=== PATIENT | female | born 1945 | race Caucasian/White ===

== ENCOUNTER → 2016-02-27 | Outpatient (REF) | payer MEDICARE | LOC: M LAB REF 15:07 | PROVIDERS: ATTEND Nurse Practitioner Adult Health | DX: J44.1 Chronic obstructive pulmonary disease with (acute) exacerbation (principal) ==

== ENCOUNTER → 2017-03-11 | Outpatient (REF) | payer MEDICARE, MEDICAID | LOC: M LAB REF 16:38 | DX: N76.0 Acute vaginitis (principal) | CPT/HCPCS: 87070 ==

== ENCOUNTER → 2017-08-11 | Outpatient (CLI) | payer MEDICARE, MEDICAID | LOC: M WUC 15:58 | DX: S20.221A Contusion of right back wall of thorax, initial encounter (principal); X58.XXXA Exposure to other specified factors, initial encounter; Y92.89 Other specified places as the place of occurrence of the external cause; Y93.9 Activity, unspecified; Y99.9 Unspecified external cause status | CPT/HCPCS: 71101 ==

== ENCOUNTER → 2017-08-14 | Outpatient (CLI) | payer MEDICARE, MEDICAID ==
[2017-08-14 17:50] LABS: BLOOD UREA NITROGEN 15 MG/DL (7-18)
[2017-08-14 17:50] LABS: CREATININE FOR GFR 0.58 MG/DL (0.55-1.30); GLOMERULAR FILTRATION RATE > 60.0 (>39)
== END ==
LOC: M WUC 09:24
DX: S20.221A Contusion of right back wall of thorax, initial encounter (principal); Y92.89 Other specified places as the place of occurrence of the external cause; Y93.9 Activity, unspecified; Y99.9 Unspecified external cause status
CPT/HCPCS: 82565

== ENCOUNTER → 2017-08-19 | Outpatient (CLI) | payer MEDICARE, MEDICAID ==
[~2017-08-19] MED LIST: ISOVUE-370 76% 100ML VIAL (Q9967) As Ordered
== END ==
LOC: M RAD 13:49
DX: S20.221A Contusion of right back wall of thorax, initial encounter (principal); R91.8 Other nonspecific abnormal finding of lung field; J44.9 Chronic obstructive pulmonary disease, unspecified; I70.0 Atherosclerosis of aorta; I25.10 Atherosclerotic heart disease of native coronary artery without angina pectoris; X58.XXXA Exposure to other specified factors, initial encounter; Y92.9 Unspecified place or not applicable
CPT/HCPCS: Q9967

== ENCOUNTER → 2017-08-25 | Outpatient (REF) | payer MEDICARE ==
[2017-08-25 13:26] LABS: INR 0.87; PROTHROMBIN TIME 11.9 SECONDS (12.1-14.4)
== END ==
LOC: M LAB REF 13:01
DX: R91.8 Other nonspecific abnormal finding of lung field (principal)
CPT/HCPCS: 85610

== ENCOUNTER 2017-09-02 00:10 | Inpatient (IN) | payer MEDICARE ==
[2017-09-02] MEDS ORDERED: IPRATROPIUM 0.5MG/ALBUTEROL 2.5MG INH SOL UD 3ML (DUONEB)(J7620) As Ordered (00:14)
[2017-09-02 00:48] LABS: ABG BASE EXCESS -1.1 (-2.0-2.0); ABG HCO3 26.2 MEQ/L (22.0-26.0); ABG O2 SATURATION 94.3 % (95.0-99.0); ABG PARTIAL PRESSURE CO2 54.8 mmHg (35.0-45.0); ABG STANDARD HCO3 23.5 MEQ/L (22.0-26.0); ABG TOTAL CO2 27.9 MEQ/L (23.0-31.0); ABG pH (ARTERIAL) 7.297 UNITS (7.350-7.450)
[2017-09-02] MEDS: dexameTHASONE 20 MG/5 ML VIAL (J1100) IV (00:49)
[2017-09-02] MEDS: LORazepam 2 MG/ML VIAL (J2060) IV ×2 (00:50→12:44)
[2017-09-02 00:59] LABS: BASO # 0.1 10^3/uL (0.0-0.2); BASO % 0.3 % (0.0-1.0); EOS % 0.2 % (0.0-3.0); HEMATOCRIT 36.5 % (36.0-47.0); IMMATURE GRANULOCYTE % 0.6 % (0-3.0); LYMPH # 2.1 10^3/uL (1.5-4.5); MEAN CORPUSCULAR HEMOGLOBIN 29.4 pg (27.0-33.0); MEAN CORPUSCULAR HGB CONC 32.9 g/dl (32.0-36.5); MEAN CORPUSCULAR VOLUME 89.5 fl (80.0-96.0); MONO # 1.9 10^3/uL (0.0-0.8); MONO % 9.1 % (0.0-5.0); NEUTROPHILS # 16.7 10^3/uL (1.8-7.7); NEUTROPHILS % 79.8 % (36.0-66.0); PLATELET COUNT, AUTOMATED 381 10^3/uL (150-450); RED BLOOD COUNT 4.08 10^6/uL (4.00-5.40); RED CELL DISTRIBUTION WIDTH 13.2 % (11.5-14.5); WHITE BLOOD COUNT 20.9 10^3/uL (4.0-10.0)
[2017-09-02 01:15] LABS: ANION GAP 9 MEQ/L (8-16); BLOOD UREA NITROGEN 12 MG/DL (7-18); CALCIUM LEVEL 8.3 MG/DL (8.8-10.2); CARBON DIOXIDE LEVEL 28 MEQ/L (21-32); CHLORIDE LEVEL 100 MEQ/L (98-107); CREATININE FOR GFR 0.68 MG/DL (0.55-1.30); GLOMERULAR FILTRATION RATE > 60.0 (>39); GLUCOSE, FASTING 160 MG/DL (70-100); POTASSIUM SERUM 3.9 MEQ/L (3.5-5.1); SODIUM LEVEL 137 MEQ/L (136-145)
[2017-09-02] MEDS: IPRATROPIUM 0.5MG/ALBUTEROL 2.5MG INH SOL UD 3ML (DUONEB)(J7620) NEB ×9 (01:43→22:52)
[2017-09-02 02:29] LABS: THEOPHYLLINE LEVEL 18.8 UG/ML (10.0-20.0)
[2017-09-02] MEDS ORDERED: PILL CRUSHER/CUTTER 1 EACH XX (02:30)
[2017-09-02 03:42] LABS: ABG BASE EXCESS 0.7 (-2.0-2.0); ABG HCO3 27.9 MEQ/L (22.0-26.0); ABG O2 SATURATION 99.3 % (95.0-99.0); ABG PARTIAL PRESSURE CO2 56.3 mmHg (35.0-45.0); ABG PARTIAL PRESSURE O2 161.4 mmHg (75.0-100.0); ABG STANDARD HCO3 25.2 MEQ/L (22.0-26.0); ABG TOTAL CO2 29.6 MEQ/L (23.0-31.0); ABG pH (ARTERIAL) 7.313 UNITS (7.350-7.450)
[2017-09-02] MEDS: METOPROLOL SUCC (TopROL XL) 50MG **XL** TAB PO ×2 (04:21→08:32)
[2017-09-02] MEDS: AZITHROMYCIN INJ 500 MG, VIAL MATE ADAPTER 1 EACH in D5W 250 ML IV (04:22)
[2017-09-02] MEDS: LEVOTHYROXINE 25MCG TABLET (0.025MG) PO (06:00)
[2017-09-02] MEDS: TIOTROPIUM INHALER/CAPSULE (SPIRIVA) INH (07:49)
[2017-09-02] MEDS: SYMBICORT 160/4.5MCG INHALER 6GM INH ×2 (07:50→20:55)
[2017-09-02] MEDS: methylPREDNISolone INJ 125 MG/2 ML VIAL (J2930) IV ×3 (08:02→21:10)
[2017-09-02 08:05] LABS: ABG BASE EXCESS 2.6 (-2.0-2.0); ABG HCO3 27.7 MEQ/L (22.0-26.0); ABG O2 SATURATION 97.3 % (95.0-99.0); ABG PARTIAL PRESSURE O2 87.6 mmHg (75.0-100.0); ABG STANDARD HCO3 26.7 MEQ/L (22.0-26.0); ABG TOTAL CO2 29.1 MEQ/L (23.0-31.0); ABG pH (ARTERIAL) 7.407 UNITS (7.350-7.450)
[2017-09-02 08:28] LABS: C REACTIVE PROTEIN QUANTITATIV 8.87 MG/DL (0.00-0.30); FREE THYROXINE INDEX 4.9 % (1.3-4.8); T UPTAKE 31 % (30-39); THYROXINE (T4) 15.7 UG/DL (4.5-12.0)
[2017-09-02] MEDS: HEPARIN SOD (PORCINE) 5000 UNITS/ML VIAL SC ×2 (08:31→21:09)
[2017-09-02] MEDS: VITAMIN D 1,000 INTERNATIONAL UNITS TABLET PO (08:32)
[2017-09-02] MEDS: THEOPHYLLINE (THEO-24) 100MG SR **CAPSULE PO (08:32)
[2017-09-02] MEDS: OMEPRAZOLE 20 MG CAP PO (08:32)
[2017-09-02] MEDS: MONTELUKAST 10 MG TAB PO (08:33)
[2017-09-02] MEDS ORDERED: PANTOPRAZOLE 40MG TAB (PROTONIX) PO (09:00)
[2017-09-02] MEDS: MOXIFLOXACIN HCL 400 MG in APPROPRIATE DILUENT 1 EA IV (10:21)
[2017-09-02 13:15] LABS: ABG BASE EXCESS -0.2 (-2.0-2.0); ABG HCO3 26.8 MEQ/L (22.0-26.0); ABG O2 SATURATION 93.8 % (95.0-99.0); ABG PARTIAL PRESSURE O2 72.9 mmHg (75.0-100.0); ABG STANDARD HCO3 24.2 MEQ/L (22.0-26.0); ABG TOTAL CO2 28.4 MEQ/L (23.0-31.0); ABG pH (ARTERIAL) 7.313 UNITS (7.350-7.450)
[2017-09-02] MEDS: MAG SULF 1GM/100ML (MAG RUN) 1 GM in APPROPRIATE DILUENT 1 EA IV (13:59)
[2017-09-02] MEDS ORDERED: SLF 3 ML SYR IV (15:00)
[2017-09-02] MEDS ORDERED: methylPREDNISolone INJ 125 MG/2 ML VIAL (J2930) IV ×2 (20:00)
[2017-09-02] MEDS: SLF 3 ML SYR IV (21:10)
[2017-09-02 21:30] LABS: ABG BASE EXCESS 3.3 (-2.0-2.0); ABG HCO3 30.5 MEQ/L (22.0-26.0); ABG O2 SATURATION 99.4 % (95.0-99.0); ABG PARTIAL PRESSURE CO2 59.4 mmHg (35.0-45.0); ABG PARTIAL PRESSURE O2 185.6 mmHg (75.0-100.0); ABG STANDARD HCO3 27.4 MEQ/L (22.0-26.0); ABG TOTAL CO2 32.3 MEQ/L (23.0-31.0); ABG pH (ARTERIAL) 7.328 UNITS (7.350-7.450)
[2017-09-03] MEDS: LORazepam 0.5 MG TAB PO ×2 (00:12→22:57)
[2017-09-03] MEDS: IPRATROPIUM 0.5MG/ALBUTEROL 2.5MG INH SOL UD 3ML (DUONEB)(J7620) NEB ×6 (02:33→23:43)
[2017-09-03] MEDS: methylPREDNISolone INJ 125 MG/2 ML VIAL (J2930) IV ×3 (03:34→20:19)
[2017-09-03] MEDS: SLF 3 ML SYR IV ×3 (03:37→21:45)
[2017-09-03 04:58] LABS: BASO % 0.1 % (0.0-1.0); HEMATOCRIT 34.6 % (36.0-47.0); IMMATURE GRANULOCYTE % 0.7 % (0-3.0); LYMPH # 0.5 10^3/uL (1.5-4.5); LYMPH % 4.3 % (24.0-44.0); MEAN CORPUSCULAR HEMOGLOBIN 28.9 pg (27.0-33.0); MEAN CORPUSCULAR HGB CONC 31.8 g/dl (32.0-36.5); MEAN CORPUSCULAR VOLUME 90.8 fl (80.0-96.0); MONO # 0.5 10^3/uL (0.0-0.8); MONO % 4.7 % (0.0-5.0); NEUTROPHILS # 9.6 10^3/uL (1.8-7.7); NEUTROPHILS % 90.2 % (36.0-66.0); PLATELET COUNT, AUTOMATED 282 10^3/uL (150-450); RED BLOOD COUNT 3.81 10^6/uL (4.00-5.40); RED CELL DISTRIBUTION WIDTH 13.4 % (11.5-14.5); WHITE BLOOD COUNT 10.6 10^3/uL (4.0-10.0)
[2017-09-03 05:16] LABS: ALBUMIN 2.7 GM/DL (3.2-5.2); ALBUMIN/GLOBULIN RATIO 0.71 (1.00-1.93); ALKALINE PHOSPHATASE 74 U/L (45-117); ALT/SGPT 12 U/L (12-78); ANION GAP 5 MEQ/L (8-16); AST/SGOT 18 U/L (7-37); BILIRUBIN,TOTAL 0.3 MG/DL (0.2-1.0); BLOOD UREA NITROGEN 13 MG/DL (7-18); CALCIUM LEVEL 8.6 MG/DL (8.8-10.2); CARBON DIOXIDE LEVEL 32 MEQ/L (21-32); CHLORIDE LEVEL 100 MEQ/L (98-107); CREATININE FOR GFR 0.49 MG/DL (0.55-1.30); GLOMERULAR FILTRATION RATE > 60.0 (>39); GLUCOSE, FASTING 143 MG/DL (70-100); MAGNESIUM LEVEL 2.4 MG/DL (1.8-2.4); POTASSIUM SERUM 4.5 MEQ/L (3.5-5.1); SODIUM LEVEL 137 MEQ/L (136-145); TOTAL PROTEIN 6.5 GM/DL (6.4-8.2)
[2017-09-03] MEDS: TIOTROPIUM INHALER/CAPSULE (SPIRIVA) INH (07:35)
[2017-09-03] MEDS: SYMBICORT 160/4.5MCG INHALER 6GM INH ×2 (07:35→19:17)
[2017-09-03 07:38] LABS: ABG BASE EXCESS 6.3 (-2.0-2.0); ABG HCO3 32.8 MEQ/L (22.0-26.0); ABG O2 SATURATION 93.6 % (95.0-99.0); ABG PARTIAL PRESSURE CO2 57.2 mmHg (35.0-45.0); ABG PARTIAL PRESSURE O2 66.8 mmHg (75.0-100.0); ABG STANDARD HCO3 30.1 MEQ/L (22.0-26.0); ABG TOTAL CO2 34.6 MEQ/L (23.0-31.0); ABG pH (ARTERIAL) 7.377 UNITS (7.350-7.450)
[2017-09-03] MEDS ORDERED: MORPHINE 10MG/0.5ML ORAL CONCENTRATE SOLUTION U/D SL (08:15)
[2017-09-03] MEDS: METOPROLOL SUCC (TopROL XL) 50MG **XL** TAB PO (10:12)
[2017-09-03] MEDS: OMEPRAZOLE 20 MG CAP PO (10:12)
[2017-09-03] MEDS: MONTELUKAST 10 MG TAB PO (10:13)
[2017-09-03] MEDS: VITAMIN D 1,000 INTERNATIONAL UNITS TABLET PO (10:13)
[2017-09-03] MEDS: MOXIFLOXACIN HCL 400 MG in APPROPRIATE DILUENT 1 EA IV (10:13)
[2017-09-03] MEDS: SENOKOT S TAB PO ×2 (10:13→20:19)
[2017-09-03] MEDS: HEPARIN SOD (PORCINE) 5000 UNITS/ML VIAL SC ×2 (10:13→20:19)
[2017-09-04] MEDS: IPRATROPIUM 0.5MG/ALBUTEROL 2.5MG INH SOL UD 3ML (DUONEB)(J7620) NEB ×5 (01:22→19:58)
[2017-09-04 04:38] LABS: HEMATOCRIT 32.6 % (36.0-47.0); HEMOGLOBIN 10.3 g/dl (12.0-15.5); MEAN CORPUSCULAR HEMOGLOBIN 29.2 pg (27.0-33.0); MEAN CORPUSCULAR HGB CONC 31.6 g/dl (32.0-36.5); MEAN CORPUSCULAR VOLUME 92.4 fl (80.0-96.0); PLATELET COUNT, AUTOMATED 295 10^3/uL (150-450); RED BLOOD COUNT 3.53 10^6/uL (4.00-5.40); RED CELL DISTRIBUTION WIDTH 13.2 % (11.5-14.5); WHITE BLOOD COUNT 11.8 10^3/uL (4.0-10.0)
[2017-09-04 04:57] LABS: ANION GAP 3 MEQ/L (8-16); BLOOD UREA NITROGEN 17 MG/DL (7-18); C REACTIVE PROTEIN QUANTITATIV 4.91 MG/DL (0.00-0.30); CARBON DIOXIDE LEVEL 36 MEQ/L (21-32); CHLORIDE LEVEL 98 MEQ/L (98-107); CREATININE FOR GFR 0.56 MG/DL (0.55-1.30); GLOMERULAR FILTRATION RATE > 60.0 (>39); GLUCOSE, FASTING 154 MG/DL (70-100); MAGNESIUM LEVEL 2.2 MG/DL (1.8-2.4); POTASSIUM SERUM 4.7 MEQ/L (3.5-5.1); SODIUM LEVEL 137 MEQ/L (136-145)
[2017-09-04] MEDS: SLF 3 ML SYR IV ×3 (05:09→20:24)
[2017-09-04] MEDS: TIOTROPIUM INHALER/CAPSULE (SPIRIVA) INH (07:31)
[2017-09-04] MEDS: SYMBICORT 160/4.5MCG INHALER 6GM INH ×2 (07:31→21:03)
[2017-09-04] MEDS: HEPARIN SOD (PORCINE) 5000 UNITS/ML VIAL SC (08:07)
[2017-09-04] MEDS: SENOKOT S TAB PO ×2 (08:07→22:09)
[2017-09-04] MEDS: OMEPRAZOLE 20 MG CAP PO (08:07)
[2017-09-04] MEDS: methylPREDNISolone INJ 40 MG/1 ML VIAL (J2920) IV ×2 (08:07→20:24)
[2017-09-04] MEDS: VITAMIN D 1,000 INTERNATIONAL UNITS TABLET PO (08:07)
[2017-09-04] MEDS: METOPROLOL SUCC (TopROL XL) 50MG **XL** TAB PO (08:08)
[2017-09-04] MEDS: MONTELUKAST 10 MG TAB PO (08:08)
[2017-09-04] MEDS ORDERED: HYOSCYAMINE SULFATE 0.125 MG SUBL TABLET PO (08:45)
[2017-09-04] MEDS: MOXIFLOXACIN 400 MG TAB PO (09:14)
[2017-09-04] MEDS: LORazepam 0.5 MG TAB PO (20:24)
[2017-09-05] MEDS: IPRATROPIUM 0.5MG/ALBUTEROL 2.5MG INH SOL UD 3ML (DUONEB)(J7620) NEB ×4 (01:00→20:00)
[2017-09-05] MEDS: MOXIFLOXACIN 400 MG TAB PO (06:04)
[2017-09-05] MEDS: SLF 3 ML SYR IV ×2 (06:04→14:00)
[2017-09-05] MEDS: TIOTROPIUM INHALER/CAPSULE (SPIRIVA) INH (07:33)
[2017-09-05] MEDS: SYMBICORT 160/4.5MCG INHALER 6GM INH ×2 (07:34→20:53)
[2017-09-05] MEDS: VITAMIN D 1,000 INTERNATIONAL UNITS TABLET PO (09:43)
[2017-09-05] MEDS: SENOKOT S TAB PO ×2 (09:43→21:00)
[2017-09-05] MEDS: OMEPRAZOLE 20 MG CAP PO (09:43)
[2017-09-05] MEDS: MONTELUKAST 10 MG TAB PO (09:44)
[2017-09-05] MEDS: predniSONE 50 MG TAB PO (09:44)
[2017-09-05] MEDS: LORazepam 0.5 MG TAB PO ×3 (09:44→17:19)
[2017-09-05] MEDS: METOPROLOL SUCC (TopROL XL) 50MG **XL** TAB PO (09:45)
[2017-09-06] MEDS: IPRATROPIUM 0.5MG/ALBUTEROL 2.5MG INH SOL UD 3ML (DUONEB)(J7620) NEB ×5 (02:00→20:00)
[2017-09-06] MEDS: MOXIFLOXACIN 400 MG TAB PO (05:20)
[2017-09-06] MEDS: TIOTROPIUM INHALER/CAPSULE (SPIRIVA) INH (07:45)
[2017-09-06] MEDS: SYMBICORT 160/4.5MCG INHALER 6GM INH ×2 (07:45→20:30)
[2017-09-06] MEDS: MONTELUKAST 10 MG TAB PO (09:24)
[2017-09-06] MEDS: SENOKOT S TAB PO ×2 (09:24→20:56)
[2017-09-06] MEDS: OMEPRAZOLE 20 MG CAP PO (09:24)
[2017-09-06] MEDS: predniSONE 50 MG TAB PO (09:24)
[2017-09-06] MEDS: METOPROLOL SUCC (TopROL XL) 50MG **XL** TAB PO (09:26)
[2017-09-06] MEDS: VITAMIN D 1,000 INTERNATIONAL UNITS TABLET PO (09:27)
[2017-09-06] MEDS: LORazepam 0.5 MG TAB PO ×3 (09:29→22:39)
[2017-09-07] MEDS: MOXIFLOXACIN 400 MG TAB PO (06:32)
[2017-09-07] MEDS: IPRATROPIUM 0.5MG/ALBUTEROL 2.5MG INH SOL UD 3ML (DUONEB)(J7620) NEB (07:58)
[2017-09-07] MEDS: SYMBICORT 160/4.5MCG INHALER 6GM INH (07:59)
[2017-09-07] MEDS: TIOTROPIUM INHALER/CAPSULE (SPIRIVA) INH (07:59)
[2017-09-07] MEDS: predniSONE 50 MG TAB PO (09:19)
[2017-09-07] MEDS: OMEPRAZOLE 20 MG CAP PO (09:20)
[2017-09-07] MEDS: VITAMIN D 1,000 INTERNATIONAL UNITS TABLET PO (09:21)
[2017-09-07] MEDS: MONTELUKAST 10 MG TAB PO (09:21)
[2017-09-07] MEDS: LORazepam 0.5 MG TAB PO ×2 (09:21→13:04)
[2017-09-07] MEDS: METOPROLOL SUCC (TopROL XL) 50MG **XL** TAB PO (09:21)
[2017-09-07] MEDS: SENOKOT S TAB PO (09:22)
== END 2017-09-07 13:10 | disposition hospice, home (50) | DRG 189 ==
LOC: M MS5PR 09-04 13:55 → M ED 00:10 → M ED INP 02:06 → M ICU 03:03
PROC: 5A09357 Assistance with Respiratory Ventilation, Less than 24 Consecutive Hours, Continuous Positive Airway Pressure (ICD-10-PCS; principal; 2017-09-02)
DX: J96.02 Acute respiratory failure with hypercapnia (principal); C34.11 Malignant neoplasm of upper lobe, right bronchus or lung; R64 Cachexia; E87.2 Acidosis; J44.1 Chronic obstructive pulmonary disease with (acute) exacerbation; C79.51 Secondary malignant neoplasm of bone; Z68.1 Body mass index [BMI] 19.9 or less, adult; Z66 Do not resuscitate; Z51.5 Encounter for palliative care; E03.9 Hypothyroidism, unspecified; B96.3 Hemophilus influenzae [H. influenzae] as the cause of diseases classified elsewhere; B96.1 Klebsiella pneumoniae [K. pneumoniae] as the cause of diseases classified elsewhere; J96.01 Acute respiratory failure with hypoxia; I10 Essential (primary) hypertension; K21.9 Gastro-esophageal reflux disease without esophagitis; E55.9 Vitamin D deficiency, unspecified; Z87.891 Personal history of nicotine dependence; Z79.51 Long term (current) use of inhaled steroids; Z79.899 Other long term (current) drug therapy; Z88.1 Allergy status to other antibiotic agents